=== PATIENT | female | born 1940 | race Caucasian/White ===

== ENCOUNTER 2021-01-16 16:24 | Inpatient (IN) | payer BC, MEDICARE, OTHER ==
[~2021-01-16] VITALS: Ht 157.5 cm; Wt 55.0 kg
--- NOTE | 2021-01-16 16:48 | NUR ---
[facility] FROM [facility] [employer] FOR WITNESSED SYNCOPAL EVENT. PT STATES SHE THREW THE BOWLING BALL AND THEN FELT REALLY BAD WITH ASSOCIATED ABD PAIN AND SOB AND SAT DOWN THEN PASSED OUT. PT STATES HER ABD PAIN FELT LIKE "I REALLY NEEDED TO HAVE A BOWEL MOVEMENT". PT DENIES FALLING OR HITTING HER HEAD. EMS STATES UPON [facility]RIVAL PTS SBP WAS IN THE 70'S. PT DOES TAKE ELIQUIS FOR HX OF A-FIB. PT STATES A SIMILIAR SITUATION HAPPENED 5 YEARS AGO AT HOME WHEN HER ABD HURT AND SHE FELT LIKE SHE NEEDED TO HAVE A BM ABD SHE PASSED OUT. ONCE SHE WAS ABLE TO HAVE A BM THE SENSATION PASSED. VSS UPON ARRIVAL WERE BP 114/70, HR 68, 97% RA, BLOOD SUGAR 156.
--- NOTE | 2021-01-16 17:26 | NUR ---
FRIEND (DEBI FREITAS) [phone]
[2021-01-16 18:10] LABS: MEAN CORPUSCULAR HEMOGLOBIN 32.4 pg (27.0-34.8); MEAN CORPUSCULAR HGB CONC 33.4 g/dL (32.4-35.8); MEAN PLATELET VOLUME 9.3 fL (7.4-10.4); PLATELET COUNT 218 x10^3/uL (130-400); RED BLOOD COUNT 3.51 x10^6/uL (3.82-5.3); RED CELL DISTRIBUTION WIDTH 14.4 % (9.6-15.2)
[2021-01-16 18:21] LABS: ALANINE AMINOTRANSFERASE 30 U/L (12-78); ALBUMIN 4.1 g/dL (3.4-5.0); ANION GAP 7 mmol/L (5-15); CALCIUM 8.2 mg/dL (8.5-10.1); CHLORIDE 110 mmol/L (98-107)
[2021-01-16 18:26] LABS: ALKALINE PHOSPHATASE 65 U/L (45-117); BILIRUBIN,TOTAL 0.3 mg/dL (0.2-1.0); CREATININE 1.49 mg/dL (0.55-1.02); TOTAL PROTEIN 7.5 g/dL (6.4-8.2); TROPONIN I < 0.015 ng/mL (0.000-0.045)
[2021-01-16 18:48] LABS: BAND#(MANUAL) 0.62 x10^3/uL; BANDS%(MANUAL) 4 % (0-7); LYMPH#(MANUAL) 0.93 x10^3/uL (1-3.4); LYMPHS% (MANUAL) 6 % (22-44); MONOS#(MANUAL) 0.78 x10^3/uL (0.3-2.7); MONOS% (MANUAL) 5 % (2-9); SEG#(MANUAL) 13.18 x10^3/uL (1.8-6.8); SEGS% (MANUAL) 85 % (42-75)
[2021-01-16 18:49] LABS: <PLATELET ESTIMATE> ADEQUATE; <RBC MORPHOLOGY> NORMAL; LARGE PLATELETS 1+
[2021-01-16 19:30] LABS: MICROSCOPIC AUTO
[2021-01-16] MEDS ORDERED: SODIUM CHLORIDE 0.9% 1,000ML IVBOLUS ONE (19:30)
--- NOTE | 2021-01-16 19:43 | NUR ---
PT WITH STEADY GAIT TO BATHROOM
--- NOTE | 2021-01-16 19:55 | NUR ---
PT TO CT
[2021-01-16] MEDS ORDERED: OMNIPAQUE 350 MG/ML, 100ML BOTTLE ONE (20:15)
[2021-01-16 20:57] VITALS: BP 151/69
[2021-01-16] MEDS ORDERED: ONDANSETRON ODT 4 MG PO PRN (21:00)
[2021-01-16] MEDS ORDERED: POLYETHYLENE GLYCOL 17 GM PACKET PO PRN (21:00)
[2021-01-16] MEDS ORDERED: ACETAMINOPHEN 325 MG TABLET PO PRN (21:00)
[2021-01-16] MEDS ORDERED: CEFTRIAXONE 1,000 MG in DEXTROSE 5% 50 ML IVPB SCH (21:30)
[2021-01-16] MEDS: BISACODYL 10 MG SUPP PR SCH (21:49)
[2021-01-16] MEDS: SODIUM CHLORIDE 0.9% 1,000 ML IV SCH (21:49)
[2021-01-16] MEDS: METRONIDAZOLE PMX 500MG/100ML 100 ML IV SCH (22:44)
[2021-01-16] MEDS ORDERED: CHOL10003 PO (23:07)
[2021-01-16] MEDS ORDERED: HYDR-3342 PO (23:07)
[2021-01-16] MEDS ORDERED: LACT1CAP4 PO (23:07)
[2021-01-16] MEDS ORDERED: FLEC50TA25 PO (23:07)
[2021-01-16] MEDS ORDERED: prolia INJ (23:07)
[2021-01-16] MEDS ORDERED: FOLI1TAB32 PO (23:07)
[2021-01-16] MEDS ORDERED: NIFE90TA PO (23:07)
[2021-01-16] MEDS ORDERED: METH2.5T PO (23:07)
[2021-01-16] MEDS ORDERED: METO-282 PO (23:07)
[2021-01-16] MEDS ORDERED: LISI-170 PO (23:07)
[2021-01-16] MEDS ORDERED: ATOR10TA9 PO (23:07)
[2021-01-16] MEDS ORDERED: APIX2.5T PO (23:07)
[2021-01-16] MEDS ORDERED: Vitamin E PO (23:07)
[2021-01-16 23:43] VITALS: BP 146/71
[2021-01-17] VITALS: BP 146/71
[2021-01-17 05:12] LABS: BASOPHILS % (AUTO) 0 % (0-1); EOSINOPHILS % (AUTO) 0 % (1-7); LYMPHOCYTES % (AUTO) 4 % (22-44); MEAN CORPUSCULAR HEMOGLOBIN 32.6 pg (27.0-34.8); MEAN CORPUSCULAR HGB CONC 33.7 g/dL (32.4-35.8); MEAN PLATELET VOLUME 10.3 fL (7.4-10.4); MONOCYTES % (AUTO) 8 % (2-9); NEUTROPHILS % (AUTO) 87 % (42-75); PLATELET COUNT 182 x10^3/uL (130-400); RED BLOOD COUNT 3.18 x10^6/uL (3.82-5.3); RED CELL DISTRIBUTION WIDTH 14.1 % (9.6-15.2)
[2021-01-17 05:24] LABS: ANION GAP 8 mmol/L (5-15); CALCIUM 7.4 mg/dL (8.5-10.1); CHLORIDE 113 mmol/L (98-107)
[2021-01-17] MEDS: METRONIDAZOLE PMX 500MG/100ML 100 ML IV SCH ×2 (05:52→13:49)
[2021-01-17 07:38] VITALS: BP 146/72
[2021-01-17] MEDS: BISACODYL 10 MG SUPP PR SCH (08:35)
[2021-01-17] MEDS ORDERED: SENNA/DOCUSATE TABLET PO SCH (09:00)
[2021-01-17] MEDS ORDERED: APIXABAN 2.5 MG TABLET PO SCH (09:30)
[2021-01-17] MEDS ORDERED: FOLIC ACID 1 MG TABLET PO SCH (09:30)
[2021-01-17] MEDS ORDERED: FLECAINIDE 50MG TABLET PO SCH (09:30)
[2021-01-17] MEDS ORDERED: METOPROLOL TARTRATE 25 MG TAB PO SCH (09:30)
[2021-01-17] MEDS ORDERED: CIPR500T87 PO (09:41)
[2021-01-17] MEDS ORDERED: METR500T PO (09:41)
[2021-01-17] MEDS ORDERED: niFEDipine ER 90 MG TAB.ER.24 PO SCH (10:00)
[2021-01-17] MEDS: SODIUM CHLORIDE 0.9% 1,000 ML IV SCH (10:21)
[2021-01-17 14:18] VITALS: BP 150/68
[2021-01-17] MEDS ORDERED: ATORVASTATIN 10 MG TABLET PO SCH (21:00)
== END 2021-01-17 17:21 | disposition home or self-care (01) | DRG 391 ==
LOC: ED 19:15 → EDIP 19:48 → 4WST 20:42
PROVIDERS: ADMIT Internal Medicine; ATTEND Family Medicine
DX: K52.9 Noninfective gastroenteritis and colitis, unspecified (principal); N17.0 Acute kidney failure with tubular necrosis; N39.0 Urinary tract infection, site not specified; I48.20 Chronic atrial fibrillation, unspecified; D68.69 Other thrombophilia; B96.89 Other specified bacterial agents as the cause of diseases classified elsewhere; D64.9 Anemia, unspecified; I10 Essential (primary) hypertension; J32.0 Chronic maxillary sinusitis; K57.90 Diverticulosis of intestine, part unspecified, without perforation or abscess without bleeding; K59.00 Constipation, unspecified; Z80.3 Family history of malignant neoplasm of breast; Z82.49 Family history of ischemic heart disease and other diseases of the circulatory system
CPT/HCPCS: 36415; 70450; 74177; 80048; 80053; 81001; 83605; 84484; 85025; 87040; 87077; 87086; 87186; 93005; 93880; 96374; 99285; G0378; J0696; Q9967; J7030